=== PATIENT | male | born 1965 | race Caucasian/White ===

== ENCOUNTER → 2018-03-27 | Outpatient (CLI) | payer OTHER ==
[~2018-03-27] MED LIST: AMOX875; HYDACE5 PO; NAPR500 PO
[2018-03-27 13:15] LABS: Bilirubin, Urine Neg (Neg); Blood, Urine Neg (Neg); Glucose Qualitative, Urine Neg (Neg); Ketones, Urine Neg (Neg); Leukocyte Esterase, Urine Neg (Neg); Nitrite, Urine Neg (Neg); Protein, Urine Neg (Neg); Specific Gravity, Urine 1.005 (1.003-1.022); Urobilinogen, Urine NORM (Normal)
[2018-03-27 13:30] LABS: Appearance, Urine Clear (Clear); Color, Urine Yellow (P-Yellow)
== END ==
LOC: LAB 09:47 → LAB SHORT 09:47
PROVIDERS: Internal Medicine Cardiovascular Disease
DX: R32 Unspecified urinary incontinence (principal)
CPT/HCPCS: 81003

== ENCOUNTER 2018-07-20 16:26 | Emergency (ER) | payer OTHER ==
[~2018-07-20] VITALS: Ht 170.2 cm; Wt 69.8 kg
[~2018-07-20 16:26] MED LIST changes: +ASPI81CH PO; +FURO20; +LAMICTAL XR50 MG; +METO25; +PRED20 PO; +RISP1
[2018-07-20 17:04] LABS: BASOPHILS ABSOLUTE AUTO 0.08 K/mm3 (0.00-0.23); BASOPHILS PERCENT AUTO 1 % (0-2); EOSINOPHILS ABSOLUTE AUTO 0.32 K/mm3 (0.00-0.68); EOSINOPHILS PERCENT AUTO 4 % (0-6); Hematocrit 37.7 % (37.0-53.0); Hemoglobin 12.6 g/dL (13.5-17.5); IMMATURE GRAN ABSOLUTE AUTO 0.03 K/mm3 (0.00-0.10); IMMATURE GRAN PERCENT AUTO 0 % (0-1); LYMPHOCYTES ABSOLUTE AUTO 1.96 K/mm3 (0.84-5.20); LYMPHOCYTES PERCENT AUTO 24 % (21-46); MONOCYTES ABSOLUTE AUTO 0.64 K/mm3 (0.16-1.47); MONOCYTES PERCENT AUTO 8 % (4-13); Mean Corpuscular HGB 32.1 pg (26.0-34.0); Mean Corpuscular HGB Conc 33.4 g/dL (31.5-36.5); Mean Corpuscular Volume 96 fL (80-100); Mean Platelet Volume 9.4 fL (9.1-12.4); NEUTROPHILS ABSOLUTE AUTO 5.04 K/mm3 (1.96-9.15); NEUTROPHILS PERCENT AUTO 62 % (41-73); Platelet Count 231 K/mm3 (150-400); RDW Coefficient Variation 11.8 % (11.7-14.2); RDW Standard Deviation 41.4 fL (35.1-46.3); Red Blood Cell Count 3.92 M/mm3 (4.30-5.90); White Blood Cell Count 8.07 K/mm3 (4.00-11.30)
[2018-07-20 17:15] LABS: Alanine Aminotransfer (ALT/SGP 33 U/L (12-78); Albumin, Blood 3.9 g/dL (3.4-5.0); Albumin/Globulin Ratio 1.2 (0.8-1.8); Alk Phos 90 U/L (50-136); Anion Gap 5 mmol/L (6-16); Aspartate Aminotrans (AST/SGOT 22 U/L (12-37); Bilirubin, Total 0.3 mg/dL (0.1-1.0); Blood Urea Nitrogen 13 mg/dL (8-24); Bun/Creatinine Ratio 11.8 (12.0-20.0); CO2, Blood 27 mmol/L (21-32); Calcium, Blood 8.4 mg/dL (8.5-10.1); Chloride, Blood 107 mmol/L (98-108); Globulin, Blood 3.2 g/dL (2.2-4.0); Glomerular Filtration Rate >60 (60-); Glucose, Blood 93 mg/dL (70-99); Potassium, Blood 3.6 mmol/L (3.5-5.5); Sodium, Blood 139 mmol/L (136-145); Total Protein, Blood 7.1 g/dL (6.4-8.2)
[2018-07-20] MEDS ORDERED: LAMO100 PO (18:06)
[2018-07-20] MEDS ORDERED: METO25ER PO (18:07)
[2018-07-20] MEDS ORDERED: LOSA25 PO (18:07)
[2018-07-20] MEDS ORDERED: ATOR40TA PO (18:08)
[2018-07-20] MEDS ORDERED: OMEPRAZOLE MAGN20 MG PO (18:08)
[2018-07-20] MEDS ORDERED: POTA10T PO (18:08)
[2018-07-20] MEDS ORDERED: FURO20 PO (18:08)
[2018-07-20] MEDS ORDERED: SIME80CH PO (18:09)
[2018-07-20] MEDS ORDERED: VIT B COMPLEX PO (18:09)
[2018-07-20] MEDS ORDERED: CHOL10002 PO (18:09)
[2018-07-20] MEDS ORDERED: Seroquel50 MG PO (18:09)
[2018-07-20] MEDS ORDERED: HYDR-86 PO (18:11)
[2018-07-20] MEDS ORDERED: CORLANOR5 MG PO (18:14)
[2018-07-20 20:15] LABS: Source, Urine Clean Catch
[2018-07-20 20:22] LABS: Appearance, Urine Clear (Clear); Bilirubin, Urine Neg (Neg); Blood, Urine Neg (Neg); Color, Urine Yellow (P-Yellow); Glucose Qualitative, Urine Neg (Neg); Ketones, Urine Neg (Neg); Leukocyte Esterase, Urine Neg (Neg); Nitrite, Urine Neg (Neg); Protein, Urine Neg (Neg); Urobilinogen, Urine 1+ (Normal)
== END 2018-07-20 22:52 | disposition home or self-care (01) ==
LOC: ER 16:26
PROVIDERS: Emergency Medicine; Physician Assistant
DX: G89.18 Other acute postprocedural pain (principal); R10.30 Lower abdominal pain, unspecified; R53.81 Other malaise; Z79.82 Long term (current) use of aspirin; Z79.899 Other long term (current) drug therapy; Z87.891 Personal history of nicotine dependence; Z98.890 Other specified postprocedural states
CPT/HCPCS: 36415; 71046; 72191; 73706; 80053; 81003; 85025; 93926; 96361; 96374; 99284-25; J2270; J7030; Q9967

== ENCOUNTER 2019-04-24 10:33 | Day surgery (SDC) | payer OTHER ==
[~2019-04-24] VITALS: Ht 170.2 cm; Wt 72.1 kg
[~2019-04-24 10:33] MED LIST changes: +ATOR40TA PO; +CHOL10002 PO; +CORLANOR5 MG PO; +FURO20 PO; +Flonase 0.05% N16 GM; +HYDR-86 PO; +INDO50S; +LAMO100 PO; +LOSA25 PO; +METO25ER PO; +NITR.4SL; +OMEPRAZOLE MAGN20 MG PO; +POTA10T PO; +SIME80CH PO; +SUCR1; +Seroquel50 MG PO; +VIT B COMPLEX PO
== END 2019-04-24 12:25 | disposition home or self-care (01) ==
LOC: ORSCSDS 10:33
PROVIDERS: Student in an Organized Health Care Education/Training Program
PROC: 0DJD8ZZ Inspection of Lower Intestinal Tract, Via Natural or Artificial Opening Endoscopic (ICD-10-PCS; principal; 2019-04-24 13:15)
DX: Z12.11 Encounter for screening for malignant neoplasm of colon (principal); Z80.0 Family history of malignant neoplasm of digestive organs; G47.33 Obstructive sleep apnea (adult) (pediatric); I25.10 Atherosclerotic heart disease of native coronary artery without angina pectoris; F20.9 Schizophrenia, unspecified; I10 Essential (primary) hypertension; E78.00 Pure hypercholesterolemia, unspecified; Z79.82 Long term (current) use of aspirin; Z87.891 Personal history of nicotine dependence; Z79.899 Other long term (current) drug therapy
CPT/HCPCS: J2704; J7120